=== PATIENT | female | born 2000 | race Caucasian/White ===

== ENCOUNTER → 2023-12-18 | Outpatient (CLI) | payer BC ==
--- NOTE | 2023-12-18 16:41 | US ---
EXAMINATION TYPE: US kidneys/renal and bladder DATE OF EXAM: 12/18/2023 COMPARISON: NONE CLINICAL INDICATION: Female, 23 years old with history of N39.9DISORDER OF URINARY SYSTEM, UNSPECIFIE D; UTI EXAM MEASUREMENTS: Right Kidney: 10.7 x 5.8 x 4.2 cm Left Kidney: 10.8 x 5.1 x 5.7 cm Right Kidney: No hydronephrosis or masses seen Left Kidney: Slightly limited due to gas. No hydronephrosis or masses seen Bladder: Appears wnl Bilateral Jets seen: Yes IMPRESSION: No evidence for obstructive uropathy or renal calculus.
== END | disposition home or self-care (01) ==
LOC: RADUSWWP 15:32
PROVIDERS: ATTEND Urology
DX: N39.9 Disorder of urinary system, unspecified (principal)
CPT/HCPCS: 76770